=== PATIENT | male | born 1940 | race Caucasian/White ===

== ENCOUNTER → 2018-03-08 | Outpatient (CLI) | payer OTHER ==
--- NOTE | 2018-03-08 20:40 | RAD ---
Exam performed: Scrotal ultrasound. Indication: Right scrotal swelling Date of Service: 03/08/18. Comparison: None available Technique: Real-time grayscale,color flow, duplex doppler and spectral analysis of the scrotal contents is performed and images are obtained. Findings: The right testicle measures 3.7 by 3.0 x 1.9 cm where as the left testicle measures 3.5 x 2.8 x 2.3 cm. No focal lesions are identified. There is increased vascularity to the right epididymis and surrounding tissues with mild increased vascularity to the right testicle. Tiny 3 mm right epididymal head cyst is noted. No hydroceles and varicocele is identified. Impression: 1. Findings consistent with right epididymo- orchitis. Electronically signed by: Aniya Cantor MD (03/08/2018 8:37 PM) [facility]
== END | disposition home or self-care (01) ==
LOC: RAD 19:04
PROVIDERS: ATTEND Internal Medicine
DX: N50.89 Other specified disorders of the male genital organs (principal); N50.3 Cyst of epididymis
CPT/HCPCS: 76870